=== PATIENT | female | born 1980 | race Caucasian/White ===

== ENCOUNTER 2020-01-21 07:37 | Outpatient (CLI) | payer OTHER, SELFPAY ==
--- NOTE | ~2020-01-21 | MMUS_ITS ---
EXAMINATION: MM diagnostic luis BI w la, US breast RT limited HISTORY: Palpable right breast mass TECHNIQUE: Additional 3-D tomosynthesis images of the right breast were performed and synthetic 2-D i mages were generated. CAD analysis was submitted and interpreted. High resolution right breast ultras ound was performed. COMPARISON: None BREAST PARENCHYMAL COMPOSITION: The breasts are heterogenously dense, which may obscure small masses FINDINGS: MAMMOGRAPHIC FINDINGS: There is focal mass in the upper outer quadrant of the right breast with adjacent tissue marker. Ther e are a few associated coarse calcifications. ULTRASOUND: Right breast ultrasound: There are multiple dilated ducts in the upper outer quadrant of the right breast. In addition, there is a heterogeneous ill-defined area of hypoechogenic soft tissue with posterior shadowing, 11:00, 4 c m from the nipple. There is some internal vascularity. IMPRESSION: 1. Complex hypoechoic mass at 11:00, 4 cm from the nipple with posterior shadowing and internal vascu larity. Ultrasound-guided right breast biopsy recommended. BI-RADS CATEGORY 4-SUSPICIOUS ABNORMALITY Reviewed, dictated and finalized at location A. IMPRESSION: 1. Complex hypoechoic mass at 11:00, 4 cm from the nipple with posterior shadow ing and internal vascularity. Ultrasound-guided right breast biopsy recommended . BI-RADS CATEGORY 4-SUSPICIOUS ABNORMALITY
== END 2020-01-21 07:38 | disposition home or self-care (01) ==
PROVIDERS: PCP Nurse Practitioner Family; Visit Provider Obstetrics & Gynecology
DX: N63.11 Unspecified lump in the right breast, upper outer quadrant (principal); R92.8 Other abnormal and inconclusive findings on diagnostic imaging of breast
CPT/HCPCS: 76642; 77062; 77066; G0279

== ENCOUNTER 2023-03-02 10:43 | Emergency (ER) | payer BC, MEDICAID, SELFPAY ==
--- NOTE | ~2023-03-02 | CT_ITS ---
EXAMINATION: CT facial bones wo con DATE: 03/02/2023 11:43 INDICATION: Facial pain, head injury TECHNIQUE: Computed tomography (CT) of the facial bones and maxillofacial region was performed withou t intravenous contrast. The dose-length product (DLP) was 235.18 mGy-cm. Automated exposure control a nd iterative reconstruction technique were employed. COMPARISON: None. FINDINGS: There is an acute, mildly comminuted fracture of the left lateral orbital wall. There is a comminuted fracture of the left zygomatic arch. There is a nondisplaced fracture in the anterior wall of the left maxillary sinus. There is a mildly comminuted lateral wall fracture of the left maxillar y sinus. There is left periorbital soft tissue swelling. A small fluid level is present in the left m axillary sinus. No additional facial fracture is identified. The visualized portions of the cervical spine are unremarkable. IMPRESSION: 1. Comminuted fractures in the lateral wall of the left orbit, the left zygomatic arch, and the later al wall of the left maxillary sinus. Nondisplaced anterior wall fracture of the left maxillary sinus. Reviewed, dictated and finalized at location A. IMPRESSION: 1. Comminuted fractures in the lateral wall of the left orbit, the left zygomat ic arch, and the lateral wall of the left maxillary sinus. Nondisplaced anterio r wall fracture of the left maxillary sinus.
--- NOTE | ~2023-03-02 | CT_ITS ---
EXAMINATION: CT brain wo con INDICATION: Headache COMPARISON: 11/29/2010 TECHNIQUE: Standard unenhanced head CT. The dose-length product (DLP) was 529.67 mGy-cm. The mA was a djusted according to patient size. Iterative reconstruction technique was employed. FINDINGS: No intracranial hemorrhage, acute infarction, or abnormal mass lesion. The ventricles are n ormal. No abnormal mass effect or midline shift. The jewell-white matter differentiation is normal. The basal cisterns are patent. The orbits are normal. The paranasal sinuses, mastoids and calvarium are normal. IMPRESSION: 1. No acute intracranial abnormality. Reviewed, dictated and finalized at location A.
[2023-03-02 11:00] VITALS: BP 137/73; PULSE 102; RESP 16; TEMP 36.4; O2SAT 98
--- NOTE | 2023-03-02 11:25 | ED.GENADULT ---
HPI - General Adult General Chief complaint: Head Injury Stated complaint: Fall, hit face Time Seen by Provider: 03/02/23 11:17 Source: patient Mode of arrival: ambulatory Limitations: no limitations History of Present Illness HPI narrative: This is a 42-year-old female who is coming from home for chief complaint of a fall that occurred last night. She reports that she fell and hit her head on her tile floor. She reports bruising to the left periorbital region. She has pain in the frontal head area. She denies LOC at the time. She does not take blood thinners. Patient also reports some intermittent dizziness has not had any troubles with ambulation. Patient states that she was drinking alcohol last night and feels that she missed a step going in to her back door from outside. She states she fell straight forward and hit her face. Denies any numbness, weakness, seizures, speech problems. Denies any further site of pain or injury. Related Data Allergies Allergy/AdvReac Type Severity Reaction Status Date / Time No Known Allergies Allergy Verified 03/02/23 11:54 Review of Systems Review of Systems: All systems as dictated in HPI Exam Narrative: GENERAL: Well-appearing, well-nourished, and in no acute distress. HEAD: Normocephalic, atraumatic. Tenderness in the left frontal scalp and left periorbital area. No crepitus. EYES: PERRLA and EOMI. there is left periorbital bruising. Fluorescein stain exam reveals no evidence of any open globe. No abrasions. No foreign bodies. Tonometry reveals normal pressures in bilateral eyes. ENT: Nares clear, no rhinorrhea or epistaxis. Mucous membranes moist. Oropharynx without tonsillar hypertrophy exudate or other lesions. No hemotympanum. NECK: Supple. No adenopathy or masses. Full range of motion actively. CHEST: No respiratory distress. Clear to auscultation. No wheezes rales or rhonchi HEART: Regular rate and rhythm. No murmur heard. Normal peripheral pulses. ABDOMEN: Soft, nontender, nondistended, normal active bowel sounds. MSK: Normal range of motion. No edema. There is no tenderness throughout the CT LS spine. No step-offs or deformities. No tenderness throughout the rest of the joint/extremity exam. SKIN: Warm, dry, no rash. NEURO: Alert and oriented x3. No focal deficits. Cranial nerves II through XII intact. PSYCH: Normal mood and affect. Course Course Emergency Course: Reevaluation 1400: Patient feels significant improvement with Toradol. Vital Signs Vital signs: Vital Signs Temperature 97.6 F 03/02/23 11:00 Pulse Rate 102 H 03/02/23 11:00 Respiratory Rate 16 03/02/23 11:00 Blood Pressure 137/73 03/02/23 11:00 Pulse Oximetry 98 03/02/23 11:00 Oxygen Delivery Room Air 03/02/23 11:00 Temperature 97.6 F 03/02/23 11:00 Pulse Rate 102 H 03/02/23 11:00 Respiratory Rate 16 03/02/23 11:00 Blood Pressure 137/73 03/02/23 11:00 Pulse Oximetry 98 03/02/23 11:00 Oxygen Delivery Room Air 03/02/23 11:00 Medical Decision Making MDM Narrative Medical decision making narrative: This is a 42-year-old female who presents to the ED with chief complaint of facial injury after a fall last night. She was intoxicated. Vitals are normal. Exam reveals significant bruising and tenderness to the left periorbit. Neuro exam intact. Eyes are PERRLA. CT brain is unremarkable. CT facial bones shows Comminuted fractures in the lateral wall of the left orbit, the left zygomatic arch, and the lateral wall of the left maxillary sinus. Nondisplaced anterior wall fracture of the left maxillary sinus.. I discussed this case with Dr. Monson ([facility] ophthalmology) who is agreeable for outpatient follow-up. He states that she should be given a prescription for Augmentin for a week and to have her follow-up with her clinic in about 1 month which is when they typically follow-up these facial fractures. I gave the patient home instructions regarding no
[2023-03-02] MEDS: SODIUM CHLORIDE 0.9% IV 1,000 ML 999 ML IV CONT (11:53)
[2023-03-02] MEDS: diphenhydrAMINE HCl INJ 50 MG/ML VIAL 25 MG IV PUSH (11:54)
[2023-03-02] MEDS: PROCHLORPERAZINE EDISYLATE 10 MG/2 ML VIAL IV PUSH (11:54)
[2023-03-02 12:01] LABS: Basophils Percent Auto 0.7 % (0.2-1.2); Eosinophils Percent Auto 0.4 % (0-4.4); Hematocrit 42.5 % (37.0-47.0); Hemoglobin 13.9 g/dL (12.0-15.0); Immature Granulocyte Absolute 0.01 K/mm3 (0.00-0.031); Immature Granulocyte Percent A 0.2 % (0-0.5); Lymphocytes Absolute Auto 1.16 K/mm3 (0.9-3.2); Lymphocytes Percent Auto 25.2 % (18.3-44.2); Mean Corpuscular HGB Conc 32.7 g/dl (32-36); Mean Corpuscular Hemoglobin 33.6 pg (26-34); Mean Corpuscular Volume 102.7 fl (80-100); Mean Platelet Volume 10.1 fl (7.4-10.4); Monocytes Absolute Auto 0.5 K/mm3 (0.1-0.6); Monocytes Percent Auto 10.8 % (2.6-8.5); Neutrophils Absolute Auto 2.9 K/mm3 (1.3-6.7); Neutrophils Percent Auto 62.7 % (45.5-73.1); Platelet Count Result 202 k/mm3 (150-375); Red Blood Count 4.14 M/mm3 (4.2-5.4); Red Cell Distribution Width 13.2 % (11.5-14.5); White Blood Count 4.6 K/mm3 (4.5-10.0)
[2023-03-02] MEDS: KETOROLAC 15 MG/ML VIAL (*BKC) IV PUSH (12:34)
[2023-03-02 12:38] LABS: Alanine Aminotransferase 504 U/L (6-35); Albumin Level 4.4 g/dL (3.5-5.1); Alkaline Phosphatase 90 U/L (38-126); Anion Gap 8 mmol/L (8-16); Aspartate Amino Transferase 273 U/L (14-36); Bilirubin,Total 0.9 mg/dL (0.2-1.3); Blood Urea Nitrogen 23 mg/dL (7-17); Calcium 8.3 mg/dL (8.4-10.2); Carbon Dioxide 27 mmol/L (22-30); Chloride 103 mmol/L (98-107); Estimated CRCL calculation 84 ml/min; Estimated Glomerular Filt Rate > 60; Glucose 64 mg/dL (65-110); Sodium 138 mmol/L (137-145)
[2023-03-02] MEDS: FLUORESCEIN SOD 1 MG/STRIP EACH EYE (13:43)
== END 2023-03-02 14:46 | disposition home or self-care (01) ==
PROVIDERS: Emergency Provider Physician Assistant
DX: S02.842A Fracture of lateral orbital wall, left side, initial encounter for closed fracture (principal); S02.40FA Zygomatic fracture, left side, initial encounter for closed fracture; S02.40DA Maxillary fracture, left side, initial encounter for closed fracture; W19.XXXA Unspecified fall, initial encounter
CPT/HCPCS: 36415; 70450; 70486; 80053; 81025; 85025; 96361; 96374; 96375; 99284; J0780; J1200; J1885; J7030